=== PATIENT | female | born 1985 | race African-American/Black ===

== ENCOUNTER 2019-09-05 22:42 | Emergency (ER) | payer BC ==
[~2019-09-05] VITALS: Ht 160 cm; Wt 73.5 kg
--- NOTE | 2019-09-05 23:04 | NUR ---
ED Nurse Note: Patient walked in from home d/t vaginal bleeding started yesterday, per pt clots present and saturated 2 pads in the past hour. Patient aao x 4 and ambulatory. Patient placed in gown and monitor. no acute distress noted. Brother at bedside.
--- NOTE | 2019-09-05 23:04 | NUR ---
ED Nurse Note: Urine collected and sent to lab.
[2019-09-05 23:06] VITALS: BP 139/89
--- NOTE | 2019-09-05 23:10 | NUR ---
ED Nurse Note: ERMD at bedside.
[2019-09-05] MEDS ORDERED: Ketorolac 30mg Inj IV ONE (23:15)
--- NOTE | 2019-09-05 23:25 | NUR ---
ED Nurse Note: Patient stated allergy to NSAIDs, hives and itching, ERMD notified, Toradol held and wasted.
[2019-09-05 23:44] LABS: BASOPHILS % (AUTO) 1.4 % (0.0-2.0); EOSINOPHILS % (AUTO) 3.3 % (0.0-3.0); HEMATOCRIT 39.2 % (37.0-47.0); HEMOGLOBIN 13.9 G/DL (12.0-16.0); LYMPHOCYTES % (AUTO) 31.6 % (20.0-45.0); MEAN CORPUSCULAR VOLUME 92 FL (80-99); MONOCYTES % (AUTO) 9.9 % (1.0-10.0); NEUTROPHILS % (AUTO) 53.8 % (45.0-75.0); PLATELET COUNT 233 K/UL (150-450); RED BLOOD COUNT 4.24 M/UL (4.20-5.40); RED CELL DISTRIBUTION WIDTH 11.8 % (11.6-14.8); WHITE BLOOD COUNT 5.9 K/UL (4.8-10.8)
--- NOTE | 2019-09-06 00:02 | NUR ---
ED Nurse Note: ERMD at bedside.
[2019-09-06] MEDS ORDERED: NAPROXEN500 M1 ORAL (00:09)
--- NOTE | 2019-09-06 00:09 | Emergency Room Report ---
History of Present Illness General Chief Complaint: Female Urogenital Problems Source: Patient Present Illness HPI This a 34-year-old female with history of fibroids. She presents with complaint of vaginal bleeding. Onset today. She had her menstruation about a week ago and start bleeding again today. She went to urgent care and had blood work done and urine done. Urinalysis was normal. was negative. Her hemoglobin was 13.9 based on the labs. When she went home she had more bleeding. She said she was passing large clots and had about 2 pads an hour for a couple of hours or so. Denies any fever chills but no nausea no vomiting. Denies any abdominal pain. Said that she is under more stress lately. Allergies: Coded Allergies: ASPIRIN (Verified Allergy, Unknown, 09/05/19) Uncoded Allergies: PENICILLIN (Allergy, Unknown, 09/05/19) Patient History Past Medical History: see triage record, old chart reviewed Past Surgical History: other Pertinent Family History: none Social History: Denies: smoking Last Menstrual Period: 08/23/18 Now: No Immunizations: other Reviewed Nursing Documentation: PMH: Agreed; PSxH: Agreed Nursing Documentation-PMH Past Medical History: No Stated History Review of Systems Eye: Denies: eye pain, blurred vision ENT: Denies: ear pain, nose congestion, throat swelling Respiratory: Denies: cough, shortness of breath Cardiovascular: Denies: chest pain, palpitations Gastrointestinal: Denies: abdominal pain, diarrhea, nausea, vomiting Genitourinary: Reports: vag bleed/dc Musculoskeletal: Denies: back pain, joint pain Skin: Denies: rash Neurological: Denies: headache, numbness Endocrine: Denies: increased thirst, increased urine Hematologic/Lymphatic: Denies: easy bruising All Other Systems: negative except mentioned in HPI Physical Exam Vital Signs Date Time Temp Pulse Resp B/P (MAP) Pulse Ox O2 Delivery O2 Flow Rate FiO2 09/05/19 22:47 98.1 98 19 147/87 (107) 99 Room Air Vitals unremarkable Sp02 EP Interpretation: reviewed, normal General Appearance: well appearing, no apparent distress, alert Head: normocephalic, atraumatic Eyes: bilateral eye PERRL, bilateral eye EOMI ENT: hearing grossly normal, normal pharynx Neck: full range of motion, supple, no meningismus Respiratory: chest non-tender, lungs clear, normal breath sounds Cardiovascular #1: regular rate, rhythm, no murmur Gastrointestinal: normal bowel sounds, non tender, no mass, no organomegaly, no bruit, non-distended Genitourinary: other - Pelvic exam done with female nurse as RN. External exam normal. Internal exam show amount of clots in the vault. Scant bleeding from the os Musculoskeletal: back normal, normal range of motion, gait/station normal Psychiatric: mood/affect normal Medical Decision Making Diagnostic Impression: Primary Impression: Dysfunctional uterine bleeding ER Course Presents with dysfunctional uterine bleeding. Not . Hemoglobin stable. Bleeding seemed to be resolving. Patient said that she can take over- the-counter Motrin or Advil but can take prescription ibuprofen. She can take Aleve without any problem. She says she breaks out in hives when she takes control pills. Will discharge home with prescription for Naprosyn. She will need CREDIT COLLECTOR follow-up if continue with bleeding. Last Vital Signs Date Time Temp Pulse Resp B/P (MAP) Pulse Ox O2 Delivery O2 Flow Rate FiO2 09/05/19 23:51 98.1 09/05/19 23:06 85 19 139/89 99 Room Air Status: improved Disposition: HOME, SELF-CARE Condition: Stable Scripts Naproxen* (NAPROXEN*) 500 Mg Tablet. 500 MG ORAL TWICE A DAY, #30 TAB Prov: Morgan Jarquin MD 09/06/19 Additional Instructions: Follow-up with your doctor in 7 days. You may need referral to see drier feeder. Return if worse. Morgan Jarquin MD Sep 06, 2019 00:09
--- NOTE | 2019-09-06 00:15 | NUR ---
ER DISCHARGE NOTE: Patient is cleared to be discharged per ERMD, pt is aox4, on room air, with stable vital signs. pt was given dc and prescription instructions, pt was able to verbalize understanding, pt id band and iv site removed without complications. pt is able to ambulate with steady gait. pt took all belongings. pt stable upon discharge.
== END 2019-09-06 00:15 | disposition home or self-care (01) ==
LOC: EMR 23:33
DX: N93.9 Abnormal uterine and vaginal bleeding, unspecified (principal); Z88.6 Allergy status to analgesic agent; Z88.0 Allergy status to penicillin
CPT/HCPCS: 36415; 81025; 85025; 99283; J1885

== ENCOUNTER 2020-02-12 20:55 | Emergency (ER) | payer BC ==
[~2020-02-12] VITALS: Ht 160 cm; Wt 75.7 kg
[~2020-02-12 20:55] MED LIST: NAPROXEN500 M1 ORAL
--- NOTE | 2020-02-12 21:04 | NUR ---
ED Nurse Note: Pt walked in to ED c/o rash on her face due to allergic reaction x3 days. Reports she has been taking benadryl at home witout relief of symptoms. pt states she had a SAHNI and diaphoretic [employer]. Pt AAOX4, verbally responsive. No SOB. VSS.
[2020-02-12 21:05] VITALS: BP 152/84
--- NOTE | 2020-02-12 21:22 | Emergency Room Report ---
History of Present Illness General Chief Complaint: Allergic Reaction Source: Patient Present Illness HPI Patient presents with 3 days of allergies. She has had facial itching and itching in her hands. She has been taking Benadryl. She denies any swelling in her throat or wheezing. She has had allergies like this before related to shellfish. There is been no change in her diet, change in soaps, perfumes that she is aware of. She has been unable to work for the last 2 days because of the amount of itching and amount of Benadryl she has been taking. She denies any pain at this time to me although reports pain of 2/10 to the triage nurse. She denies nausea, vomiting or diarrhea. She denies abdominal pain. She felt somewhat dizzy during the day today. Because of this she presented to the emergency department. Last menstruation February 01 and normal for her. She does not believe she is at this time. No fevers or chills. No fevers or chills. No upper respiratory symptoms. 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 Last Menstrual Period: 02/01 Now: No Reviewed Nursing Documentation: PMH: Agreed; PSxH: Agreed Review of Systems Constitutional: Reports: see HPI Eye: Denies: tearing, acuity changes, discharge ENT: Reports: see HPI Respiratory: Reports: see HPI Gastrointestinal: Reports: see HPI Genitourinary: Reports: see HPI Musculoskeletal: Denies: joint pain Skin: Reports: see HPI Neurological: Reports: see HPI; Denies: headache Allergic: Reports: see HPI Physical Exam Vital Signs Date Time Temp Pulse Resp B/P (MAP) Pulse Ox O2 Delivery O2 Flow Rate FiO2 02/12/20 20:59 98.2 82 18 152/84 (106) 99 Room Air Sp02 EP Interpretation: reviewed, normal General Appearance: well appearing, no apparent distress, GCS 15, non-toxic Head: normocephalic Eyes: bilateral eye normal inspection, bilateral eye PERRL, bilateral eye EOMI ENT: no angioedema, moist mucus membranes Neck: supple, other - No stridor Respiratory: lungs clear, normal breath sounds, other - No wheezing Cardiovascular #1: regular rate, rhythm, no edema Cardiovascular #2: 2+ radial (R) Gastrointestinal: normal inspection Musculoskeletal: back normal, normal range of motion, gait/station normal Neurologic: alert, oriented x3, grossly normal Psychiatric: mood/affect normal Skin: rash - Erythroderma and maculopapular rash on the face and also hands, warm/dry Medical Decision Making Diagnostic Impression: Primary Impression: Allergic reaction Qualified Codes: T78.40XA - Allergy, unspecified, initial encounter ER Course Patient presents with facial rash and itching for 3 days. Differential includes allergic reaction, rosacea, cellulitis amongst others. No evidence of anaphylaxis or angioedema. Patient is fairly certain that this is an allergic reaction and is requesting steroids and medication to stop itching. Plan treatment with IV Solu-Medrol, IM epinephrine. Because the patient is complained about dizziness normal saline will be given. Etiology of this reaction is unclear. Improved with treatment. Discussed home observation and treatment plan Discussed the need for outpatient reevaluation. Patient stable for outpatient observation and treatment. Last Vital Signs Date Time Temp Pulse Resp B/P (MAP) Pulse Ox O2 Delivery O2 Flow Rate FiO2 02/12/20 22:50 98.2 79 16 133/79 98 Room Air Status: improved Disposition: HOME, SELF-CARE Condition: Improved Scripts Diphenhydramine Hcl* (BENADRYL*) 25 Mg Capsule 25 MG ORAL Q6H PRN for Itching, #20 CAP Prov: Randolph Moran MD 02/12/20 Hydrocortisone/Aloe (Hydrocortisone/Aloe 1% Cream*) Y Cr 1 APPLIC TOPIC BID PRN for Itching, #30 GM Prov: Randolph Moran MD 02/12/20 Prednisone* (PREDNISONE*) 20 Mg Tablet 40 MG ORAL DAILY, #10 TAB Prov: Randolph Moran MD 02/12/20 Randolph Moran MD Feb 12, 2020 21:22
--- NOTE | 2020-02-12 21:29 | NUR ---
ED Nurse Note: IV line established. All due meds given.
[2020-02-12] MEDS ORDERED: Solu-MEDROL 125mg Inj IVP ONE (21:30)
[2020-02-12] MEDS ORDERED: EPINEPHrine 1mg/1ml Amp IM ONE (21:30)
[2020-02-12] MEDS ORDERED: HYDROCORTISONE-30 GM TOPIC (22:33)
[2020-02-12] MEDS ORDERED: BENADRYL25 MG ORAL (22:33)
[2020-02-12] MEDS ORDERED: PREDNISONE20 MG ORAL (22:33)
[2020-02-12 22:50] VITALS: BP 133/79
--- NOTE | 2020-02-12 22:50 | NUR ---
ED Nurse Note: Pt cleared by ERMD for discharge. DC instructions/prescription was given and explained to pt and verbalized understanding of teachings. All medical deviecs such as ID band and IV line removed. Pt is AAO x4, ambulatory and left with all personal belongings. P/u by s/o.
== END 2020-02-12 22:50 | disposition home or self-care (01) ==
LOC: EMR 21:15
DX: T78.40XA Allergy, unspecified, initial encounter (principal); X58.XXXA Exposure to other specified factors, initial encounter; Y92.9 Unspecified place or not applicable; Z88.0 Allergy status to penicillin; Z88.6 Allergy status to analgesic agent
CPT/HCPCS: 96361; 96372; 96374; 99284; J0171; J2930; J7030